=== PATIENT | female | born 1960 | race Caucasian/White ===

== ENCOUNTER 2023-07-18 09:19 | Day surgery (SDC) | payer MEDICAID, OTHER ==
[~2023-07-18] VITALS: Ht 154.9 cm; Wt 78.5 kg
[~2023-07-18 09:19] MED LIST: BALANCED SALT IRRIG SOLN 15ML ONE; CYCLOPENTOLATE HCL 1% OPHTH DROPS 2ML LEFTEYE NR; PHENYLEPHRINE HCL 10% OPHTH DROPS 5ML LEFTEYE NR; TROPICAMIDE 1% OPHTH DROPS 15ML LEFTEYE NR
[2023-07-18 10:14] LABS: BASOPHILS % 1.3 % (0.0-2.0); HEMATOCRIT. 35.1 % (36.0-48.0); HEMOGLOBIN. 11.7 g/dL (12.0-16.0); LYMPHOCYTES % 38.2 % (20.0-50.0); MEAN CORPUSCULAR HEMOGLOBIN 27.8 pg (28.0-32.0); MEAN CORPUSCULAR HGB CONC 33.3 g/dL (31.0-37.0); MEAN CORPUSCULAR VOLUME 83.4 fL (81.0-99.0); MEAN PLATELET VOLUME 7.2 fl (7.4-10.4); MONOCYTES % 7.6 % (2.0-8.0); NEUTROPHILS % 48.9 % (40.0-76.0); PLATELET 212 x1000/uL (130-400); RED BLOOD CELL COUNT 4.21 mill/uL (4.2-5.4); RED CELL DISTRIBUTION WIDTH 14.4 % (11.6-14.6); WHITE BLOOD COUNT 8.4 x1000/uL (4.5-11.0)
[2023-07-18 10:48] LABS: CALCIUM 10.1 mg/dL (8.7-10.4); POTASSIUM 4.8 mEq/L (3.5-5.1)
[2023-07-18 10:54] LABS: CREATININE 1.1 mg/dL (0.6-1.0)
[2023-07-18] MEDS ORDERED: SODIUM CHLORIDE 0.9% 1,000 ML IV SCH (11:00)
[2023-07-18] MEDS ORDERED: METO-539 PO (11:13)
[2023-07-18] MEDS ORDERED: ASPI-1406 PO (11:13)
[2023-07-18] MEDS ORDERED: LISI20TA31 PO (11:13)
[2023-07-18] MEDS ORDERED: METF-416 PO (11:13)
[2023-07-18] MEDS ORDERED: ROSU40TA PO (11:13)
[2023-07-18] MEDS ORDERED: PANT40TA51 PO (11:13)
[2023-07-18] MEDS ORDERED: SEMA14TA2 PO (11:13)
[2023-07-18] MEDS ORDERED: BALANCED SALT IRRIG SOLN COMB1 500ML OP NR (13:00)
[2023-07-18] MEDS ORDERED: HYALURONATE SODIUM 10 MG/ML 0.55ML SYRINGE IO ONE ×2 (14:28→15:25)
[2023-07-18] MEDS ORDERED: TRYPAN BLUE 0.5 ML DISP.SYRIN IO ONE (14:29)
[2023-07-18] MEDS ORDERED: DEXAMETHASONE 4MG/ML 1ML VIAL ONE (14:42)
[2023-07-18] MEDS ORDERED: MIDAZOLAM HCL 2 MG/2 ML VIAL ONE (14:42)
[2023-07-18] MEDS ORDERED: ONDANSETRON HCL 4MG/2ML INJ ONE (14:42)
[2023-07-18] MEDS ORDERED: FENTANYL CITRATE/PF 50MCG/ML 2ML VIAL ONE (14:43)
[2023-07-18] MEDS ORDERED: PROPOFOL 200MG/20ML VIAL IV ONE (14:43)
[2023-07-18] MEDS ORDERED: NALOXONE HCL 0.4MG/ML VIAL IV PRN (15:30)
[2023-07-18] MEDS ORDERED: FENTANYL CITRATE/PF 50MCG/ML 2ML VIAL IV PRN (15:30)
[2023-07-18] MEDS ORDERED: HYDROMORPHONE HCL/PF 2MG/ML CPJ IV PRN (15:30)
[2023-07-18] MEDS ORDERED: ONDANSETRON HCL 4MG/2ML INJ IV PRN (15:30)
== END 2023-07-18 17:25 | disposition home or self-care (01) ==
LOC: OR 09:19
PROVIDERS: ATTEND Ophthalmology
DX: E11.36 Type 2 diabetes mellitus with diabetic cataract (principal); H25.89 Other age-related cataract; I10 Essential (primary) hypertension; I25.10 Atherosclerotic heart disease of native coronary artery without angina pectoris; E78.5 Hyperlipidemia, unspecified; Z79.82 Long term (current) use of aspirin; Z79.84 Long term (current) use of oral hypoglycemic drugs; Z79.899 Other long term (current) drug therapy; Z98.890 Other specified postprocedural states
CPT/HCPCS: 66984; 93005; 80048; 85025; 36415; J3010; J1100; J2250; J2405; J2704; J3490; V2632; Q9957